=== PATIENT | male | born 1975 | race African-American/Black ===

== ENCOUNTER 2021-08-26 11:39 | Emergency (ER) | payer OTHER, SELFPAY ==
--- NOTE | ~2021-08-26 | XR_ITS ---
EXAMINATION: XR shoulder LT min 2V INDICATION: Left shoulder pain TECHNIQUE: Four views of the left shoulder are submitted. COMPARISON: None FINDINGS: Normal alignment. No fracture. There is mild osteoarthritis of the acromioclavicular joint. The glenohumeral joint is unremarkable. Soft tissues are unremarkable. IMPRESSION: 1. No acute osseous abnormality. Reviewed, dictated and finalized at location A.
[2021-08-26 11:48] VITALS: BP 182/103; PULSE 94; RESP 20; TEMP 36.7; O2SAT 100
--- NOTE | 2021-08-26 12:28 | ED.UPPEXIN ---
HPI - Extremity Injury (Upper) General Chief Complaint: Extremity Injury, Upper Stated Complaint: left shoulder injury Time Seen by Provider: 08/26/21 12:21 Source: patient Mode of arrival: ambulatory Limitations: no limitations History of Present Illness HPI narrative: Patient was sitting in his truck, a forklift went under his truck, patient balance and hit his left shoulder on a metal bar while sitting in the truck. 2 days ago. Patient complaining of left shoulder pain with certain movement. Patient denies other injuries. Related Data Allergies Allergy/AdvReac Type Severity Reaction Status Date / Time iodine Allergy Unknown Skin Verified 08/26/21 11:50 irritation Review of Systems Review of Systems: CONSTITUTIONAL: Denies fever, chills, or sweats. EYES: Denies visual changes, redness, or discharge. ENT: Denies rhinorrhea, congestion, sore throat, or otalgia. CARDIOVASCULAR: Denies chest pain, palpitations, or edema. RESPIRATORY: Denies cough or dyspnea. GASTROINTESTINAL: Denies abdominal pain, nausea, vomiting, or diarrhea. GENITOURINARY: Denies dysuria or hematuria. SKIN: Denies rash or itching. MUSCULOSKELETAL: Denies back pain, joint pain, or myalgia. NEUROLOGIC: Denies headache, numbness, or weakness. PSYCHIATRIC: Denies anxiety or depression. [facility] Family History Family History Other Diabetes mellitus Family history of coronary artery disease Social History Social History Smoking status: Never smoker Alcohol intake: current Exam Narrative: General appearance: Well-developed, well-nourished Skin: Normal color Head: Normocephalic, nontraumatic Eyes: Clear conjunctiva ENT: Oropharynx normal, ears normal, nose normal Neck: Supple, nontender Chest and respiratory: Airway patent, no respiratory distress, no accessory muscle use Heart: Regular rate/rhythm Abdomen: Soft, nontender, no organomegaly, quiet bowel sounds Vascular: Normal peripheral pulses, normal capillary refill. 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 No acute osseous abnormality. Critical Care Time Critical Care Time Critical Care Time: No Discharge Plan Discharge Clinical Impression: Contusion of left shoulder Patient Disposition: Home, Self-Care Condition: Stable Instructions: Antibiotic Form, Shoulder Pain (ED) Additional Instructions: Return if symptoms are worsening , call your family physician for appointment, take Tylenol as as needed for aches and pain, continue home medications. Ibuprofen 600 every 6 hours as needed Follow-up/Referrals: PHYSICIAN,EXPORT SALES MANAGER [Primary Care Provider] - Angel Monaco MD [Physician] - 08/27/21
== END 2021-08-26 13:55 | disposition home or self-care (01) ==
PROVIDERS: Emergency Provider Emergency Medicine
DX: S40.012A Contusion of left shoulder, initial encounter (principal); W22.8XXA Striking against or struck by other objects, initial encounter
CPT/HCPCS: 73030; 99283

== ENCOUNTER 2022-06-18 07:57 | Outpatient (CLI) | payer OTHER, SELFPAY ==
--- NOTE | ~2022-06-18 | MR_ITS ---
Corrected Report Correction to contrast amount See bolded text 06/21/2022 J This report was recreated on 06/21/2022. Original report was signed by Siddhartha Clancy M.D. on 06/18/2022 10:04 SHELL TRIM OPERATOR. EXAMINATION: MR ankle LT wo/w con DATE: 06/18/2022 09:03 INDICATION: Left ankle pain and swelling TECHNIQUE: Magnetic resonance imaging (MRI) of the left ankle was performed without and with 20 mL Multihance intravenous contrast. Sequences included axial, sagittal and coronal PD-weighted FSE and PD-weighted FS FSE, axial T1- weighted FSE, axial T1-weighted FS FSE and postcontrast axial and coronal T1- weighted FS FSE. COMPARISON: None. FINDINGS: Bones/other: Bone alignment is normal. No fracture. Polyarticular osteoarthritis with nonuniform joint space narrowing and partial-thickness cartilage loss. This is most prominent anteriorly at the left ankle joint where there is greater than 50% cartilage thickness along the anterior tibial plafond and as well as moderate-sized anterior and posterior marginal osteophytes. Similar mild to moderate severity osteoarthritis with small regions of greater than 50% cartilage loss at the inferolateral talonavicular and superior calcaneocuboid articulations. Mild osteoarthritis at the remaining joints in the midfoot. There is scattered subarticular predominant marrow edema and enhancement along significant portions of the subtalar joint which is disproportionate to the degree of osteoarthritis suggest an inflammatory arthritis. This is most severe at the sustentaculum simona and the juxtaposed inferomedial aspect of the talus. There is enhancing synovitis along the margins of the subtalar joint space but without a significant associated joint effusion. At the ankle joint there is additional diffuse enhancing synovitis along the margins of a minimal joint effusion. Enhancing erosions with thin sclerotic margins at the anterior tibial plafond and at the anteromedial margin of the lateral malleolus.. Small enhancing erosion at the anterior process of the calcaneus and dorsal margin of the proximal cuboid. Focal enhancement without definitive erosion at the distal dorsal medial corner of the mid cuneiform. Medial ankle ligaments: There is loss of the normally sharply defined striated pattern of the deep deltoid ligament without a discrete ligament defect which could represent scarring related to chronic sprain. The spring ligament complex is normal. The superficial deltoid ligament appears intact but bulges medially due to thickening of the underlying edematous fat and enhancing synovitis. Lateral ankle ligaments: The anterior and posterior inferior tibiofibular ligaments are normal. The anterior talofibular ligament appears grossly intact but attenuated which could represent sequela from chronic partial tear. Assessment is however limited by the prominent surrounding edema and synovitis. The calcaneofibular and posterior talofibular ligaments are normal. Tendons: Achilles tendon is normal. The peroneus longus and brevis tendons are normal. The tibialis anterior and extensor hallucis longus and extensor digitorum longus tendons are normal. The tibialis posterior, flexor digitorum longus and flexor hallucis longus tendons are normal. No associated tenosynovitis. Plantar fascia: Plantar aponeurosis is normal. IMPRESSION: 1. 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 The prominence of the enhancing erosions and synovitis despite the relatively large regions of still preserved cartilage thickness would favor a crystalline arthropathy such as gout over either a rheumatologic arthritis or septic arthri
== END 2022-06-18 07:58 ==
PROVIDERS: PCP Internal Medicine; Visit Provider Podiatrist Foot & Ankle Surgery
DX: M13.872 Other specified arthritis, left ankle and foot (principal)
CPT/HCPCS: 73723; A9577